=== PATIENT | female | born 1945 | race Caucasian/White ===

== ENCOUNTER 2021-05-18 00:28 | Emergency (ER) | payer MEDICARE ==
[~2021-05-18] VITALS: Ht 157.5 cm; Wt 68.0 kg
[2021-05-18 02:33] VITALS: BP 131/88
== END 2021-05-18 02:34 | disposition home or self-care (01) ==
LOC: ER 00:45
DX: S00.83XA Contusion of other part of head, initial encounter (principal); M54.50 Low back pain, unspecified; W18.30XA Fall on same level, unspecified, initial encounter; F43.10 Post-traumatic stress disorder, unspecified
CPT/HCPCS: 70450; 74176; 99283

== ENCOUNTER 2023-10-04 10:20 | Emergency (ER) | payer MEDICARE, OTHER ==
[~2023-10-04] VITALS: Ht 157.5 cm; Wt 70.3 kg
[2023-10-04 10:45] VITALS: PULSE 83; RESP 17; TEMP 98.3; O2SAT 98
== END 2023-10-04 14:37 | disposition home or self-care (01) ==
LOC: ER 11:06
DX: M79.602 Pain in left arm (principal); S46.812A Strain of other muscles, fascia and tendons at shoulder and upper arm level, left arm, initial encounter; X50.0XXA Overexertion from strenuous movement or load, initial encounter; Y92.89 Other specified places as the place of occurrence of the external cause; F43.10 Post-traumatic stress disorder, unspecified
CPT/HCPCS: 36415; 82550; 84484; 93005; 99283